=== PATIENT | female | born 2000 | race Caucasian/White ===

== ENCOUNTER 2025-06-04 07:58 | Outpatient (CLI) | payer OTHER, SELFPAY ==
--- NOTE | 2025-06-04 08:15 | CRLHL7_ITS ---
For Patients: As a result of the Century Cures Act, medical imaging exams and procedure reports are released immediately into your electronic medical record. You may view this report before your referring provider. If you have questions, please contact your health care provider. OB ULTRASOUND FIRST TRIMESTER INDICATION: Dating, viability. TECHNIQUE: Real time sheikh scale imaging of the fetus was performed. Transvaginal. LMP: Unknown. Previous US: No. CRL: N/A cm. FHR: N/A BPM. Gestational sac: 2.5 cm. Irregular shape. Yolk sac: ?2.1 mm. Right ovary: N/V. Left ovary: N/V. IMPRESSION: An irregularly marginated intrauterine gestational sac is present which measures 2.5 cm, 7 weeks 4 days. 2 mm yolk sac is present. No pole. Findings consistent with nonviable gestation. Jude Molina M.D. Diagnostic Radiologist [email or web address] f JR/Dictated by: Jude Molina MD @ 06/04/2025 9:52:00 AM (Electronically Signed)
== END 2025-06-04 07:59 | disposition home or self-care (01) ==
LOC: US 07:59
PROVIDERS: Visit Provider Physician Assistant
DX: O36.80X0 Pregnancy with inconclusive fetal viability, not applicable or unspecified (principal); Z3A.01 Less than 8 weeks gestation of pregnancy
CPT/HCPCS: 76817

== ENCOUNTER 2025-06-04 08:49 | Outpatient (CLI) | payer OTHER, SELFPAY | END 2025-06-04 08:50 | disposition home or self-care (01) | PROVIDERS: Visit Provider Physician Assistant | DX: O36.80X0 Pregnancy with inconclusive fetal viability, not applicable or unspecified (principal); Z3A.01 Less than 8 weeks gestation of pregnancy | CPT/HCPCS: 86850; 86900; 86901 ==

== ENCOUNTER 2025-06-10 12:58 | Outpatient (CLI) | payer OTHER, SELFPAY ==
--- NOTE | 2025-06-10 13:00 | CRLHL7_ITS ---
For Patients: As a result of the Century Cures Act, medical imaging exams and procedure reports are released immediately into your electronic medical record. You may view this report before your referring provider. If you have questions, please contact your health care provider. INDICATION: Miscarriage COMPARISON: 06/04/2025 TECHNIQUE: Grayscale and color ultrasound of the uterus and both ovaries from a transvaginal approach. Transvaginal imaging was necessary for better visualization of the endometrial contents. FINDINGS: Last menstrual period: Unknown Estimated gestational age: 8 weeks 3 days based on the gestational sac size on the prior ultrasound Normal uterine size and position. No gestational sac seen. Heterogeneous debris in the endometrial cavity. The cavity measures 0.7 cm. The endometrium is thickened and measures up to 1.6 cm in double thickness. There is some vascularity, particularly at the posterior fundal aspect of the uterus. Neither ovary visualized. No pelvic free fluid. IMPRESSION: First trimester loss. Depending on the timing of the miscarriage, retained products of conception is possible with thickened hypervascular endometrium. Dictated by Aaliyah Donahue MD @ 06/10/2025 1:57:48 PM (Electronically Signed)
== END 2025-06-10 12:59 | disposition home or self-care (01) ==
LOC: US 12:59
PROVIDERS: Visit Provider Physician Assistant
DX: O03.9 Complete or unspecified spontaneous abortion without complication (principal); N85.00 Endometrial hyperplasia, unspecified
CPT/HCPCS: 76817

== ENCOUNTER 2025-06-11 09:30 | Outpatient (CLI) | payer OTHER, SELFPAY | END 2025-06-11 09:31 | disposition home or self-care (01) | PROVIDERS: Visit Provider Obstetrics & Gynecology | DX: O03.4 Incomplete spontaneous abortion without complication (principal) | CPT/HCPCS: 84702; 86850; 86900; 86901 ==

== ENCOUNTER 2025-06-18 13:56 | Outpatient (CLI) | payer OTHER, SELFPAY | END 2025-06-18 13:57 | disposition home or self-care (01) | LOC: NFLDREF 06-21 11:46 | PROVIDERS: Visit Provider Obstetrics & Gynecology | DX: O03.4 Incomplete spontaneous abortion without complication (principal) | CPT/HCPCS: 84702 ==